=== PATIENT | female | born 2000 | race Hispanic/Latino ===

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

== ENCOUNTER 2019-06-24 11:02 | Emergency (ER) | payer SELFPAY ==
--- OUTSIDE RECORDS SUMMARY | 2019-06-24 11:04 | XMS REPORT ---
:2000 [facility] [address] [place] [address] Care Team Providers Name Role Phone Unavailable Unavailable Unavailable Problems This patient has no known problems. Allergies, Adverse Reactions, Alerts This patient has no known allergies or adverse reactions. Medications This patient has no known medications.
[2019-06-24] MEDS ORDERED: AMOX/K CLAV 875 MG TAB ONE (12:16)
--- NOTE | 2019-06-24 12:16 | EDPHYS ---
Physician Documentation [facility] Name: Tory Espinoza Age: 19 yrs Sex: Female : 2000 Arrival Date: 06/24/2019 Time: 11:05 Bed 16 Private MD: ED Physician Amilcar Martinez HPI: 06/24 12:11 This 19 yrs old Female presents to ER via Ambulatory with complaints of karley Congestion. 12:11 The patient or guardian reports cough, that is constant. Onset: The symptoms/episode karley began/occurred 2 day(s) ago. Modifying factors: The symptoms are alleviated by nothing. the symptoms are aggravated by nothing. Associated signs and symptoms: Pertinent positives: rhinorrhea, sore throat. Severity of symptoms: At their worst the symptoms were mild in the emergency department the symptoms are unchanged. The patient has not experienced similar symptoms in the past. 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 - Social history:: Smoking status: Patient/guardian denies using tobacco. - Ebola Screening: : No symptoms or risks identified at this time. - Family history:: not pertinent. ROS: 12:11 Constitutional: Negative for fever, chills, and weight loss, Eyes: Negative for injury, karley pain, redness, and discharge, Neck: Negative for injury, pain, and swelling, Cardiovascular: Negative for chest pain, palpitations, and edema, Respiratory: Negative for shortness of breath, cough, wheezing, and pleuritic chest pain, Abdomen/GI: Negative for abdominal pain, nausea, vomiting, diarrhea, and constipation, Back: Negative for injury and pain, : Negative for injury, bleeding, discharge, and swelling, MS/Extremity: Negative for injury and deformity, Skin: Negative for injury, rash, and discoloration, Neuro: Negative for headache, weakness, numbness, tingling, and seizure. 12:11 ENT: Positive for rhinorrhea, sinus congestion, sore throat. Exam: 12:11 Constitutional: This is a well developed, well nourished patient who is awake, alert, karley and in no acute distress. Head/Face: Normocephalic, atraumatic. Eyes: Pupils equal round and reactive to light, extra-ocular motions intact. Lids and lashes normal. Conjunctiva and sclera are non-icteric and not injected. Cornea within normal limits. Periorbital areas with no swelling, redness, or edema. Neck: Trachea midline, no thyromegaly or masses palpated, and no cervical lymphadenopathy. Supple, full range of motion without nuchal rigidity, or vertebral point tenderness. No Meningismus. Chest/axilla: Normal chest wall appearance and motion. Nontender with no deformity. No lesions are appreciated. Cardiovascular: Regular rate and rhythm with a normal S1 and S2. No gallops, murmurs, or rubs. Normal PMI, no JVD. No pulse deficits. Respiratory: Lungs have equal breath sounds bilaterally, clear to auscultation and percussion. No rales, rhonchi or wheezes noted. No increased work of breathing, no retractions or nasal flaring. Abdomen/GI: Soft, non-tender, with normal bowel sounds. No distension or tympany. No guarding or rebound. No evidence of tenderness throughout. Back: No spinal tenderness. No costovertebral tenderness. Full range of motion. Skin: Warm, dry with normal turgor. Normal color with no rashes, no lesions, and no evidence of cellulitis. MS/ Extremity: Pulses equal, no cyanosis. Neurovascular intact. Full, normal range of motion. Neuro: Awake and alert, GCS 15, oriented to person, place, time, and situation. Cranial nerves II-XII grossly intact. Motor strength 5/5 in all extremities. Sensory grossly intact. Cerebellar exam normal. Normal gait. Psych: Awake, alert, with orientation to person, place and time. Behavior, mood, and affect are within normal limits. 12:11 ENT: Posterior pharynx: Airway: normal, no evidence of obstruction, Tonsils: are normal in appearance, Uvula: normal, swelling, is not appreciated, erythema, that is mild, exudate, is not appreciated. Vital Signs: 11:13 BP 132 / 88; Pulse 78; Resp 16; Temp 97.8; Pulse Ox 100% on R/A; Weight 95.25 kg; hb Height 5 ft. 5 in. (165.10 cm); Pain 8/10; 12:10 BP 110 / 65; Pulse 71; Resp 15; Temp 97.8(O); Pulse Ox 100% on R/A; Pain 8/10; rb1 11:13 Body Mass Index 34.95 (95.25 kg, 165.10 cm) hb MDM: 11:32 Patient medically screened. [facility] 12:14 Data reviewed: vital signs, nurses notes. [facility] Administered Medications: 12:16 Drug: Augmentin 875 mg Route: PO; rb1 Disposition: 06/24/19 12:15 Discharged to Home. Impression: Acute upper respiratory infection, unspecified, Acute pharyngitis. - Condition is Stable. - Discharge Instructions: Pharyngitis, Upper Respiratory Infection, Adult, Cool Mist Vaporizer, Pharyngitis, [id number], Cough, Adult, Sore Throat, [id number]. - Prescriptions for Augmentin 875- 125 mg Oral Tablet - take 1 tablet by ORAL route every 12 hours for 7 days; 14 tablet. Yasmin- D 12 Hour 60-120 mg Oral Tablet Sustained Release 12 hr - take 1 tablet by ORAL route every 12 hours As needed; 20 tablet. - Medication Reconciliation Form, Thank You Letter, Antibiotic Education, Prescription Opioid Use, Work release form form. - Follow up: Private Physician; When: 2 - 3 days; Reason: Recheck today's complaints, Continuance of care, Re-evaluation by your physician. - Problem is new. - Symptoms have improved. Signatures: Amilcar Martinez MD MD [facility] Kalpana Márquez, RN RN [facility] Casi Hardin RN RN Corrections: (The following items were deleted from the chart) 12:36 12:15 06/24/2019 12:15 Discharged to Home. Impression: Acute upper respiratory rb1 infection, unspecified; Acute pharyngitis. Condition is Stable. Forms are Medication Reconciliation Form, Thank You Letter, Antibiotic Education, Prescription Opioid Use. Follow up: Private Physician; When: 2 - 3 days; Reason: Recheck today's complaints, Continuance of care, Re-evaluation by your physician. Problem is new. Symptoms have improved. [facility]
--- NOTE | 2019-06-24 12:16 | ER ---
Nurse's Notes [facility] Name: Tory Espinoza Age: 19 yrs Sex: Female : 2000 Arrival Date: 06/24/2019 Time: 11:05 Bed 16 Private MD: Diagnosis: Acute upper respiratory infection, unspecified;Acute pharyngitis Presentation: 06/24 11:12 Presenting complaint: Nonproductive cough, sore throat, headache, nausea, fever, and hb body aches x 5 days. TMAX 100.3. Transition of care: patient was not received from another setting of care. Resp Distress? No respiratory distress is noted at this time. Onset of symptoms was June 20, 2019. Risk Assessment: Do you want to hurt yourself or someone else? Patient reports no desire to harm self or others. Initial Sepsis Screen: Does the patient meet any 2 criteria? No. Patient's initial sepsis screen is negative. Does the patient have a suspected source of infection? No. Patient's initial sepsis screen is negative. Care prior to arrival: None. 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 - Social history:: Smoking status: Patient/guardian denies using tobacco. - Ebola Screening: : No symptoms or risks identified at this time. - Family history:: not pertinent. Screenin:16 Abuse screen: Denies threats or abuse. Nutritional screening: No deficits noted. rb1 Tuberculosis screening: No symptoms or risk factors identified. Fall Risk None identified. Assessment: 11:16 General: Appears in no apparent distress. comfortable, Behavior is calm, cooperative. rb1 Pain: Complains of pain in sore throat and body aches Pain currently is 8 out of 10 on a pain scale. Neuro: Level of Consciousness is awake, alert, obeys commands, Oriented to person, place, time, situation. Cardiovascular: Capillary refill < 3 seconds is brisk in bilateral fingers. Respiratory: Airway is patent Respiratory effort is even, unlabored, Respiratory pattern is regular, symmetrical, Breath sounds are clear bilaterally. GI: Reports nausea. : No signs and/or symptoms were reported regarding the genitourinary system. EENT: Reports pain when swallowing. Derm: Skin is pink, warm \T\ dry. Musculoskeletal: Range of motion: intact in all extremities. 12:10 Reassessment: Patient appears in no apparent distress at this time. No changes from rb1 previously documented assessment. Family at bedside. Vital Signs: 11:13 BP 132 / 88; Pulse 78; Resp 16; Temp 97.8; Pulse Ox 100% on R/A; Weight 95.25 kg; hb Height 5 ft. 5 in. (165.10 cm); Pain 8/10; 12:10 BP 110 / 65; Pulse 71; Resp 15; Temp 97.8(O); Pulse Ox 100% on R/A; Pain 8/10; rb1 11:13 Body Mass Index 34.95 (95.25 kg, 165.10 cm) hb ED Course: 11:05 Patient arrived in ED. as 11:13 Triage completed. hb 11:13 Arm band placed on. hb 11:14 Casi Hardin, RN is Primary Nurse. hb 11:16 Patient has correct armband on for positive identification. Bed in low position. Call rb1 light in reach. Side rails up X 1. Pulse ox on. NIBP on. 11:32 Amilcar Martinez MD is Attending Physician. karley 12:36 No provider procedures requiring assistance completed. Patient did not have IV access rb1 during this emergency room visit. Administered Medications: 12:16 Drug: Augmentin 875 mg Route: PO; rb1 Outcome: 12:15 Discharge ordered by . karley 12:36 Patient left the ED. rb1 12:36 Discharged to home ambulatory, with family. rb1 12:36 Condition: stable 12:36 Discharge instructions given to patient, Instructed on discharge instructions, follow up and referral plans. medication usage, Demonstrated understanding of instructions, follow-up care, medications, Prescriptions given X 2. Signatures: Amilcar Martinez MD MD cha Martinez, Amelia as Barber, Rebecca RN RN rb1 Casi Hardin, RN RN Corrections: (The following items were deleted from the chart) 11:14 11:12 Acuity: DEBBIE 3 hb hb 13:06 11:16 Respiratory: Airway is patent Respiratory effort is even, unlabored, Respiratory rb1 pattern is regular, symmetrical, rb1
[2019-06-24 12:46] VITALS: BP 132/88; TEMP 97.8; O2SAT 100
== END 2019-06-24 12:36 | disposition home or self-care (01) ==
LOC: ER 11:02
DX: J06.9 Acute upper respiratory infection, unspecified (principal); J02.9 Acute pharyngitis, unspecified
CPT/HCPCS: 99283

== ENCOUNTER 2020-05-03 23:11 | Emergency (ER) | payer SELFPAY ==
--- OUTSIDE RECORDS SUMMARY | 2020-05-03 23:13 | XMS REPORT | Continuity of Care Document ---
:2000 Author Organization [facility] t Address [address] [place] [address] [address] [place] [address] Care Team Providers Name Role Phone Unavailable Unavailable Unavailable Problems This patient has no known problems. Allergies, Adverse Reactions, Alerts This patient has no known allergies or adverse reactions. Medications This patient has no known medications. Procedures This patient has no known procedures. Results This patient has no known results.
[2020-05-04 00:06] LABS: Urine Blood 2+ (NEG); Urine Glucose NEGATIVE (NEG); Urine Protein 2+ (NEG); Urine pH 6.5 (5.0-7.0)
[2020-05-04 00:11] LABS: Urine Culture Reflex Order NOT NEEDED
[2020-05-04 00:12] LABS: Urine Bacteria 20-50 /HPF (<20); Urine RBC 20-50 /HPF (NONE SEEN)
[2020-05-04] MEDS ORDERED: WATER FOR INJ,STERILE 10 ML ONE (00:21)
[2020-05-04] MEDS ORDERED: CEFTRIAXONE 1000 MG/VIAL ONE (00:21)
--- NOTE | 2020-05-04 00:21 | ER ---
Nurse's Notes [facility] Name: Tory Espinoza Age: 20 yrs Sex: Female : 2000 Arrival Date: 05/03/2020 Time: 23:14 Bed 20 Private MD: Diagnosis: Low back pain;Urinary tract infection, site not specified Presentation: 05/03 23:17 Chief complaint: Patient states: Low back pain for 1 day getting progressively worse. ll1 Noticed urinary frequency with the feeling of not emptying her bladder fully for about 3 days. No fever. Coronavirus screen: Patient denies a cough. Patient denies shortness of breath or difficulty breathing. Patient denies measured and/or subjective temperature greater than 100.4F prior to today's visit. Patient denies travel on a cruise ship or to a country the [facility] currently lists as an affected area. Patient denies contact with known and/or suspected case of COVID-19. Patient instructed to continue to wear a mask when interacting with others. Patient moved to private room, placed in contact and droplet isolation with eye protection until further assessment. Ebola Screen: Patient denies travel to an Ebola-affected area in the 21 days before illness onset. Initial Sepsis Screen: Does the patient meet any 2 criteria? HR > 90 bpm. No. Patient's initial sepsis screen is negative. Risk Assessment: Do you want to hurt yourself or someone else? Patient reports no desire to harm self or others. Onset of symptoms was May 03, 2020. 23:17 Method Of Arrival: Ambulatory ll1 23:17 Acuity: DEBBIE 3 ll1 23:30 Initial Sepsis Screen: Does the patient have a suspected source of infection? Yes: Dysuria/Frequency/Urgency/UTI. 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 - Social history:: Smoking status: Patient denies any tobacco usage or history of. Patient/guardian denies using alcohol, street drugs, tobacco products. Screenin/28 00:00 Abuse screen: Denies threats or abuse. Denies injuries from another. Nutritional screening: No deficits noted. Tuberculosis screening: No symptoms or risk factors identified. Fall Risk None identified. Assessment: 05/03 23:25 General: Appears in no apparent distress. Behavior is calm, cooperative, appropriate for age. Pain: Complains of pain in mid lower back Pain does not radiate. Pain currently is 8 out of 10 on a pain scale. Neuro: Level of Consciousness is awake, alert, obeys commands, Oriented to person, place, time, situation, Appropriate for age. Cardiovascular: Capillary refill < 3 seconds. Respiratory: Airway is patent Respiratory effort is even, unlabored, Respiratory pattern is regular, symmetrical. GI: Abdomen is flat, non-distended, Abd is soft and non tender X 4 quads. : Reports urinary frequency. EENT: No signs and/or symptoms were reported regarding the EENT system. Derm: Skin is intact, is healthy with good turgor, Skin is pink, warm \T\ dry. normal. Musculoskeletal: Circulation, motion, and sensation intact. 05/04 00:34 Reassessment: Patient appears in no apparent distress at this time. No changes from previously documented assessment. Patient and/or family updated on plan of care and expected duration. Pain level reassessed. Patient is alert, oriented x 3, equal unlabored respirations, skin warm/dry/pink. Vital Signs: 05/03 23:17 BP 118 / 81; Pulse 100; Resp 17; Temp 99.0; Pulse Ox 100% ; Pain 10/10; ll1 05/04 00:30 BP 116 / 79; Pulse 94; Resp 18; Pulse Ox 100% ; ED Course: 05/03 23:14 Patient arrived in ED. cl3 23:19 Triage completed. ll1 23:19 Arm band placed on Patient placed in an exam room, on a stretcher. 1 23:26 Orlando Kolb PA is PHCP. [facility] 23:26 Melchor Reza MD is Attending Physician. mohsen 23:26 Bud Baeza is Primary Nurse. 23:30 Patient has correct armband on for positive identification. Bed in low position. Call light in reach. Side rails up X 1. Pulse ox on. NIBP on. 05/04 00:36 No provider procedures requiring assistance completed. Patient did not have IV access during this emergency room visit. Administered Medications: 00:16 Drug: Rocephin (cefTRIAXone) 1 grams Route: IM; Site: right gluteus; 00:37 Follow up: Response: No adverse reaction Outcome: 00:21 Discharge ordered by MD. jones 00:37 Discharged to home ambulatory. 00:37 Condition: stable 00:37 Discharge instructions given to patient, Instructed on discharge instructions, follow up and referral plans. medication usage, POC Demonstrated understanding of instructions, follow-up care, medications, POC Prescriptions given X 1. 00:37 Patient left the ED. Signatures: Orlando Kolb PA PA jmm Habalo, Winsy Perry Robertson cl3 Ac Robertson, RN RN ll1
--- NOTE | 2020-05-04 00:21 | EDPHYS ---
Physician Documentation [facility] Name: Tory Espinoza Age: 20 yrs Sex: Female : 2000 Arrival Date: 05/03/2020 Time: 23:14 Bed 20 Private MD: ED Physician Melchor Reza HPI: 05/03 23:32 This 20 yrs old Female presents to ER via Ambulatory with complaints of Low jmm Back Pain. 23:32 The patient presents with pain that is acute. Onset: The symptoms/episode jmm began/occurred gradually, today. Modifying factors: The patient symptoms are alleviated by nothing, the patient symptoms are aggravated by movement. Associated signs and symptoms: Pertinent negatives: abdominal pain, fever, vomiting. This is a 20 year old female with no chronic medical conditions that presents to the ED with complaints of low back pain along with dysuria. Patient denies abdominal pain, fever, vomiting. . 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 - Social history:: Smoking status: Patient denies any tobacco usage or history of. Patient/guardian denies using alcohol, street drugs, tobacco products. ROS: 23:32 Constitutional: Negative for fever, chills, and weight loss, Cardiovascular: Negative jmm for chest pain, palpitations, and edema, Respiratory: Negative for shortness of breath, cough, wheezing, and pleuritic chest pain. 23:32 Back: Positive for pain with movement. 23:32 : Positive for urinary symptoms. 23:32 All other systems are negative. Exam: 23:32 Constitutional: This is a well developed, well nourished patient who is awake, alert, jmm and in no acute distress. Head/Face: atraumatic. Eyes: EOMI, no conjunctival erythema appreciated ENT: Moist Mucus Membranes Neck: Trachea midline, Supple Chest/axilla: Normal chest wall appearance and motion. Cardiovascular: Regular rate and rhythm. No edema appreciated Respiratory: Normal respirations, no respiratory distress appreciated 23:32 Abdomen/GI: Inspection: abdomen appears normal, Bowel sounds: normal, Palpation: abdomen is soft and non-tender, in all quadrants. 23:32 Back: mild lower lumbar tenderness on palpation, mild cva tenderness bilaterally. . 23:32 Musculoskeletal/extremity: ROM: intact in all extremities. 23:32 Skin: Appearance: Color: normal in color. 23:32 Neuro: Orientation: is normal, Mentation: is normal, Memory: is normal. 23:32 Psych: Behavior/mood is pleasant, cooperative. Vital Signs: 23:17 BP 118 / 81; Pulse 100; Resp 17; Temp 99.0; Pulse Ox 100% ; Pain 10/10; ll1 05/04 00:30 BP 116 / 79; Pulse 94; Resp 18; Pulse Ox 100% ; wh MDM: 05/03 23:32 Patient medically screened. [facility] 05/04 00:19 Data reviewed: vital signs, nurses notes. Counseling: I had a detailed discussion with mohsen the patient and/or guardian regarding: the historical points, exam findings, and any diagnostic results supporting the discharge/admit diagnosis, lab results, the need for outpatient follow up, to return to the emergency department if symptoms worsen or persist or if there are any questions or concerns that arise at home. ED course: Patient is alert and non toxic in appearance in the ED. Patient is able to tolerate PO. Patient most likely has UTI with possible pyelonephritis. patient given im abx in the ED and discharged with oral abx. Patient is given strict return precautions. Patient understood and agrees with the plan of care. . 05/03 23:47 Order name: Urine Culture 05/03 23:47 Order name: Urine Microscopic Only; Complete Time: 00:16 05/03 23:39 Order name: Urine Dipstick-Ancillary (obtain specimen); Complete Time: 23:47 [facility] 05/03 23:51 Order name: Urine Dipstick--Ancillary (enter results); Complete Time: 00:09 [facility] 05/03 23:51 Order name: Urine --Ancillary (enter results); Complete Time: 00:09 [facility] 05/03 23:39 Order name: Urine Test (obtain specimen); Complete Time: 23:47 [facility] Administered Medications: 00:16 Drug: Rocephin (cefTRIAXone) 1 grams Route: IM; Site: right gluteus; 00:37 Follow up: Response: No adverse reaction Disposition: 03:52 Co-signature as Attending Physician, Melchor Reza MD. ma2 Disposition: 05/04/20 00:21 Discharged to Home. Impression: Low back pain, Urinary tract infection, site not specified. - Condition is Stable. - Discharge Instructions: Urinary Tract Infection, Adult. - Prescriptions for Cipro 500 mg Oral Tablet - take 1 tablet by ORAL route every 12 hours for 7 days; 14 tablet. - Medication Reconciliation Form, Thank You Letter, Antibiotic Education, Prescription Opioid Use form. - Follow up: Private Physician; When: 2 - 3 days; Reason: Recheck today's complaints, Continuance of care, Re-evaluation by your physician. Signatures: Dispatcher [employer] EDMS Orlando Kolb PA PA jmm Habalo, Winsy wh Alzahri, Mohammad, MD MD ma2 Ac Robertson RN RN ll1 Corrections: (The following items were deleted from the chart) 00:37 00:21 05/04/2020 00:21 Discharged to Home. Impression: Low back pain; Urinary tract wh infection, site not specified. Condition is Stable. Forms are Medication Reconciliation Form, Thank You Letter, Antibiotic Education, Prescription Opioid Use. Follow up: Private Physician; When: 2 - 3 days; Reason: Recheck today's complaints, Continuance of care, Re-evaluation by your physician. robert
[2020-05-04 00:42] VITALS: TEMP 99; O2SAT 100
[2020-05-04 00:47] VITALS: BP 116/79
== END 2020-05-04 00:37 | disposition home or self-care (01) ==
LOC: ER 23:11
DX: N39.0 Urinary tract infection, site not specified (principal)
CPT/HCPCS: 81003; 81015; 81025; 87077; 87086; 87088; 87186; 96372; 99283

== ENCOUNTER 2020-11-02 21:14 | Emergency (ER) | payer SELFPAY ==
--- OUTSIDE RECORDS SUMMARY | 2020-11-02 21:16 | XMS REPORT | Continuity of Care Document ---
:2000 Author Organization [facility] t Address [address] [place] [address] [address] [place] [address] Care Team Providers Name Role Phone Unavailable Unavailable Unavailable Problems This patient has no known problems. Allergies, Adverse Reactions, Alerts This patient has no known allergies or adverse reactions. Medications This patient has no known medications. Procedures This patient has no known procedures. Results This patient has no known results.
--- NOTE | 2020-11-02 23:33 | ER ---
Nurse's Notes [facility] Name: Tory Espinoza Age: 20 yrs Sex: Female : 2000 Arrival Date: 11/02/2020 Time: 21:15 Bed 23 Private MD: Diagnosis: Acute pharyngitis Presentation: 11/02 22:34 Chief complaint: Patient states: sore throat since Sunday, also reports chest em tightness, denies fever. Coronavirus screen: Client denies travel out of the [place] in the last 14 days. sore throat. Ebola Screen: Patient negative for fever greater than or equal to 101.5 degrees Fahrenheit, and additional compatible Ebola Virus Disease symptoms Patient denies exposure to infectious person. Patient denies travel to an Ebola-affected area in the 21 days before illness onset. No symptoms or risks identified at this time. Initial Sepsis Screen: Does the patient meet any 2 criteria? HR > 90 bpm. Does the patient have a suspected source of infection? No. Patient's initial sepsis screen is negative. Risk Assessment: Do you want to hurt yourself or someone else? Patient reports no desire to harm self or others. Onset of symptoms was October 31, 2020. 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 - Social history:: Smoking status: Patient denies any tobacco usage or history of. Screenin:33 Abuse screen: Denies threats or abuse. Nutritional screening: No deficits noted. vg1 Tuberculosis screening: No symptoms or risk factors identified. Fall Risk None identified. Assessment: 23:31 General: Appears in no apparent distress. comfortable, Behavior is calm, cooperative. vg1 Pain: Complains of pain in throat Pain currently is 8 out of 10 on a pain scale. Aggravated by eating, drinking. Neuro: Level of Consciousness is awake, alert, obeys commands, Oriented to person, place, time, situation. Cardiovascular: Patient's skin is warm and dry. Respiratory: Airway is patent Respiratory effort is even, unlabored, Breath sounds are clear bilaterally. GI: No signs and/or symptoms were reported involving the gastrointestinal system. : No signs and/or symptoms were reported regarding the genitourinary system. EENT: Throat is reddened has enlarged tonsils. Derm: Skin is intact, is healthy with good turgor. Musculoskeletal: Circulation, motion, and sensation intact. Vital Signs: 22:34 BP 124 / 76; Pulse 94; Resp 18; Temp 98.9; Pulse Ox 99% on R/A; Weight 99.79 kg; Height em 5 ft. 5 in. (165.10 cm); Pain 8/10; 23:32 BP 118 / 79; Pulse 90; Resp 14; Pulse Ox 100% on R/A; vg1 22:34 Body Mass Index 36.61 (99.79 kg, 165.10 cm) em ED Course: 21:15 Patient arrived in ED. cl3 22:36 Triage completed. em 22:36 Arm band placed on. em 23:07 Orlando Kolb PA is PHCP. [facility] 23:07 Chester Mccarthy MD is Attending Physician. [facility] 23:31 Paty Amaro, FAHEEM is Primary Nurse. vg1 23:33 Patient has correct armband on for positive identification. Bed in low position. Call vg1 light in reach. 23:38 No provider procedures requiring assistance completed. Patient did not have IV access vg1 during this emergency room visit. Administered Medications: No medications were administered Outcome: 23:32 Discharge ordered by . [facility] 23:38 Discharged to home ambulatory. vg1 23:38 Condition: stable 23:38 Discharge instructions given to patient, Instructed on discharge instructions, the need for admit, medication usage, Demonstrated understanding of instructions, follow-up care, medications, Prescriptions given X 1. 23:38 Patient left the ED. vg1 Signatures: Orlando Kolb PA PA jmm Munoz, Edgar, RN FAHEEM Perry Robertson [place] Paty Amaro RN RN vg1
--- NOTE | 2020-11-02 23:33 | EDPHYS ---
Physician Documentation [facility] Name: Tory Espinoza Age: 20 yrs Sex: Female : 2000 Arrival Date: 11/02/2020 Time: 21:15 Bed 23 Private MD: ED Physician Chester Mccarthy HPI: 11/02 23:29 This 20 yrs old Female presents to ER via Ambulatory with complaints of Sore jmm Throat, Difficulty Swallowing. 23:29 The patient presents with sore throat. Onset: The symptoms/episode began/occurred jmm gradually, 2 day(s) ago. Modifying factors: The symptoms are alleviated by nothing, the symptoms are aggravated by nothing. This is a 20 year old female with no chronic medical conditions that presents to the ED with complaints of sore throat beginning this past Sunday worsening today. Pain radiates to her left ear. Denies SOB. 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 - Social history:: Smoking status: Patient denies any tobacco usage or history of. ROS: 23:29 Constitutional: Negative for fever, chills, and weight loss, Cardiovascular: Negative jmm for chest pain, palpitations, and edema, Respiratory: Negative for shortness of breath, cough, wheezing, and pleuritic chest pain. 23:29 ENT: Positive for sore throat. 23:29 All other systems are negative. Exam: 23:29 Constitutional: This is a well developed, well nourished patient who is awake, alert, jmm and in no acute distress. Head/Face: atraumatic. Eyes: EOMI, no conjunctival erythema appreciated 23:29 Neck: Trachea midline, Supple Chest/axilla: Normal chest wall appearance and motion. Cardiovascular: Regular rate and rhythm. No edema appreciated Respiratory: Normal respirations, no respiratory distress appreciated Abdomen/GI: Non distended, soft Back: Normal ROM Skin: General appearance color normal MS/ Extremity: Moves all extremities, no obvious deformities appreciated, no edema noted to the lower extremities Neuro: Awake and alert, normal gait Psych: Behavior is normal, Mood is normal, Patient is cooperative and pleasant 23:29 ENT: Posterior pharynx: Tonsils: bilaterally enlarged, erythema, that is moderate, peritonsillar mass, is not appreciated. Vital Signs: 22:34 BP 124 / 76; Pulse 94; Resp 18; Temp 98.9; Pulse Ox 99% on R/A; Weight 99.79 kg; Height em 5 ft. 5 in. (165.10 cm); Pain 8/10; 23:32 BP 118 / 79; Pulse 90; Resp 14; Pulse Ox 100% on R/A; vg1 22:34 Body Mass Index 36.61 (99.79 kg, 165.10 cm) em MDM: 23:29 Patient medically screened. [facility] 23:31 Data reviewed: vital signs, nurses notes. Counseling: I had a detailed discussion with robert the patient and/or guardian regarding: the historical points, exam findings, and any diagnostic results supporting the discharge/admit diagnosis, the need for outpatient follow up, to return to the emergency department if symptoms worsen or persist or if there are any questions or concerns that arise at home. ED course: Patient is alert and non toxic in appearance. 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 Patient is advised to return to the ED if symptoms worsen. . 11/02 23:02 Order name: Strep tw4 Administered Medications: No medications were administered Disposition: 11/03 06:24 Co-signature as Attending Physician, Chester Mccarthy MD I agree with the assessment and 4 plan of care. Disposition: 11/02/20 23:32 Discharged to Home. Impression: Acute pharyngitis. - Condition is Stable. - Discharge Instructions: Pharyngitis. - Prescriptions for Amoxicillin 875 mg Oral Tablet - take 1 tablet by ORAL route every 12 hours for 10 days; 20 tablet. - Medication Reconciliation Form, Thank You Letter, Antibiotic Education, Prescription Opioid Use form. - Follow up: Private Physician; When: 2 - 3 days; Reason: Recheck today's complaints, Continuance of care, Re-evaluation by your physician. Signatures: Dispatcher [employer] EDMS Orlando Kolb PA PA jmm Munoz, Edgar, RN Chester Rios MD MD tw4 Paty Amaro RN RN vg1 Corrections: (The following items were deleted from the chart) 11/02 23:38 23:32 11/02/2020 23:32 Discharged to Home. Impression: Acute pharyngitis. Condition is vg1 Stable. Forms are Medication Reconciliation Form, Thank You Letter, Antibiotic Education, Prescription Opioid Use. Follow up: Private Physician; When: 2 - 3 days; Reason: Recheck today's complaints, Continuance of care, Re-evaluation by your physician. robert
[2020-11-02 23:44] VITALS: TEMP 98.9
[2020-11-02 23:45] VITALS: BP 118/79; O2SAT 100
== END 2020-11-02 23:38 | disposition home or self-care (01) ==
LOC: ER 21:14
DX: J02.9 Acute pharyngitis, unspecified (principal)
CPT/HCPCS: 87081; 99282

== ENCOUNTER 2021-05-14 16:13 | Emergency (ER) | payer SELFPAY ==
--- OUTSIDE RECORDS SUMMARY | 2021-05-14 16:16 | XMS REPORT | Continuity of Care Document ---
:2000 Author Organization [facility] t Address [address] [place] [address] Care Team Providers Name Role Phone 2, Lab Attending Clinician Unavailable Lázaro AGUILAR, Tristna Attending Clinician Linus CAMPBELL Attending Clinician Problems This patient has no known problems. Allergies, Adverse Reactions, Alerts This patient has no known allergies or adverse reactions. Medications This patient has no known medications. Procedures This patient has no known procedures. 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 2, [facility] [id number] 08:35:16 08:50:16 Visit [place] [id number] Dairy [id number] Professio [id number] [address] 2021-05-11 2021-05-11 Emergency [facility] [id number] 02:43:00 02:59:00 [place] [id number] Dairy [id number] Wise [id number] 2021-05-11 2021-05-11 Telephone Ivis Sesay [facility] [[email or web address]] [id number] 00:00:00 00:00:00 Cam [place] [id number] [place]airy [id number] Professio [phone] [address] 2021-05-11 2021-05-11 Case Ivis Sesay [facility] [[email or web address]] [id number] 00:00:00 00:00:00 Management Cam [place] [id number] [place] [id number] Professio [id number] [address] 2021-05-10 2021-05-10 Case Linus [facility] [[email or web address]] [id number] 00:00:00 00:00:00 Management Tati [place] [id number] Dairy [id number] Professio [phone] [address] 2021-05-09 2021-05-09 Initial Ivis Sesay [facility] [[email or web address]] [id number] 09:59:36 11:10:34 Cam [place] [id number] Visit [place] [id number] Professio [phone] [address] Results This patient has no known results.
[2021-05-14 17:23] LABS: Urine Blood 3+ (Negative); Urine Glucose Negative (Negative); Urine Protein Trace (Negative); Urine Specific Gravity 1.025 (1.005-1.030); Urine pH 6.5 (5.0-7.0)
--- NOTE | 2021-05-14 18:14 | RAD REPORT ---
EXAM DESCRIPTION: US - Transvaginal OB - 05/14/2021 5:35 pm CLINICAL HISTORY: VAGINAL BLEEDING COMPARISON: No comparisons FINDINGS: 4 millimeters cystic structure in the endometrial canal is noted. There is a decidual reac tion but no pole. Vascular flow is present within the left ovary. It measures 2.2 x 1 x 1.3 jabari timeters with volume of 1.6 cc. The right ovary was not visualized. IMPRESSION: Cystic structure in the endometrial canal probably an early IUP. Suggest short-term foll ow-up ultrasound and/or correlation with serial HCG. The left ovary has vascular flow. The right ovar y was not visualized
[2021-05-14 19:54] LABS: Absolute Lymphocytes (CBC) 1.5 K/uL (0.7-4.9); Basophils % 0.4 % (0-1.3); Hematocrit 35.6 % (36.0-45.0); Lymphocytes % 18.6 % (15.3-44.8); MPV 7.4 fL (7.6-11.3); RBC Red Blood Cell Count 4.38 M/uL (3.86-4.86)
[2021-05-14 20:09] LABS: BUN Blood Urea Nitrogen 4 mg/dL (7-18); Bicarbonate 27 mmol/L (21-32); Glucose Level 109 mg/dL (74-106); HCG, Quantitative 746 mIU/mL (1-3); Potassium 3.5 mmol/L (3.5-5.1); Sodium Level 139 mmol/L (136-145)
--- NOTE | 2021-05-14 22:21 | EDPHYS ---
Physician Documentation [facility] Name: Tory Espinoza Age: 21 yrs Sex: Female : 2000 Arrival Date: 05/14/2021 Time: 16:16 Bed 11 Private MD: ED Physician Stanley Sesay HPI: 05/14 22:12 This 21 yrs old Female presents to ER via Ambulatory with complaints of pkl Vaginal Bleeding - Pain. 22:12 The patient presents with pelvic pain, vaginal bleeding that is. Onset: The pkl symptoms/episode began/occurred this morning. Patient seen by her Rod Bending Machine Operator ( Dr. Sesay ) earlier this weel. 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 - Social history:: Smoking status: Patient denies any tobacco usage or history of. ROS: 22:12 Positive for pelvic pain, vaginal bleeding, of the suprapubic area. pkl 22:12 Eyes: Negative for injury, pain, redness, and discharge, ENT: Negative for injury, pain, and discharge, Neck: Negative for injury, pain, and swelling, Cardiovascular: Negative for chest pain, palpitations, and edema, Respiratory: Negative for shortness of breath, cough, wheezing, and pleuritic chest pain, Abdomen/GI: Negative for abdominal pain, nausea, vomiting, diarrhea, and constipation, Back: Negative for injury and pain, MS/Extremity: Negative for injury and deformity, Skin: Negative for injury, rash, and discoloration, Neuro: Negative for headache, weakness, numbness, tingling, and seizure. Exam: 22:12 Head/Face: Normocephalic, atraumatic. Eyes: Pupils equal round and reactive to light, pkl extra-ocular motions intact. Lids and lashes normal. Conjunctiva and sclera are non-icteric and not injected. Cornea within normal limits. Periorbital areas with no swelling, redness, or edema. ENT: Nares patent. No nasal discharge, no septal abnormalities noted. Tympanic membranes are normal and external auditory canals are clear. Oropharynx with no redness, swelling, or masses, exudates, or evidence of obstruction, uvula midline. Mucous membranes moist. Neck: Trachea midline, no thyromegaly or masses palpated, and no cervical lymphadenopathy. Supple, full range of motion without nuchal rigidity, or vertebral point tenderness. No Meningismus. Chest/axilla: Normal chest wall appearance and motion. Nontender with no deformity. No lesions are appreciated. Cardiovascular: Regular rate and rhythm with a normal S1 and S2. No gallops, murmurs, or rubs. Normal PMI, no JVD. No pulse deficits. Respiratory: Lungs have equal breath sounds bilaterally, clear to auscultation and percussion. No rales, rhonchi or wheezes noted. No increased work of breathing, no retractions or nasal flaring. Abdomen/GI: Soft, non-tender, with normal bowel sounds. No distension or tympany. No guarding or rebound. No evidence of tenderness throughout. Back: No spinal tenderness. No costovertebral tenderness. Full range of motion. 22:12 : Pelvic Exam: Speculum exam: mild bleeding, os that is closed, a female innersole fitter was present for the exam. 22:12 Musculoskeletal/extremity: Exam is negative for acute changes. 22:12 Skin: Exam negative for rash. 22:12 Neuro: Orientation: is normal, Mentation: is normal, Cranial nerves: grossly normal, Motor: is normal. Vital Signs: 16:35 BP 116 / 70; Pulse 80; Resp 20; Temp 99.4; Pulse Ox 98% on R/A; Weight 109.32 kg (M); kg Height 5 ft. 5 in. (165.10 cm); Pain 9/10; 22:29 BP 112 / 76; Pulse 80; Resp 18; Temp 98.2; Pulse Ox 98% ; Pain 2/10; ms4 16:35 Body Mass Index 40.10 (109.32 kg, 165.10 cm) kg MDM: 21:48 Patient medically screened. pkl 22:12 Data reviewed: vital signs, nurses notes, lab test result(s), radiologic studies, pkl ultrasound. ED course: Discussed lab and US results with patient. Advised bed rest and no sexual intercourse. To follow up with her Ob-Social Services Specialist on Sunday ( 05/16/21 ) To return if pelvic pain and vaginal bleeding. Patient understood instruction. 05/14 16:51 Order name: Abo/rh Typing; Complete Time: 21:42 kb 05/14 16:51 Order name: Basic Metabolic Panel; Complete Time: 21:42 kb 05/14 16:51 Order name: CBC with Diff; Complete Time: 21:42 kb 05/14 16:51 Order name: Quantitative Hcg; Complete Time: 21:42 kb 05/14 16:51 Order name: US Transvaginal Ob; Complete Time: 21:42 kb 05/14 17:23 Order name: Urine Dipstick-Ancillary; Complete Time: 21:42 EDMS 05/14 16:20 Order name: Urine Dipstick-Ancillary (obtain specimen); Complete Time: 22:30 kb 05/14 16:20 Order name: Urine Test (obtain specimen); Complete Time: 22:30 kb 05/14 16:51 Order name: IV Saline Lock; Complete Time: 22:11 kb 05/14 16:51 Order name: Labs collected and sent; Complete Time: 22:11 kb 05/14 16:51 Order name: NPO; Complete Time: 22:11 kb Administered Medications: No medications were administered Disposition Summary: 05/14/21 22:21 Discharge Ordered Location: Home pkl Problem: new pkl Symptoms: are unchanged pkl Condition: Stable pkl Diagnosis - Threatened pkl Followup: pkl - With: Private Physician - When: 1 - 2 days - Reason: Re-evaluation by your physician Forms: - Medication Reconciliation Form pkl - Thank You Letter pkl - Antibiotic Education pkl - Prescription Opioid Use pkl Signatures: Dispatcher [employer] Carol Wise, ADRIANO-[place]-Stanley Wilson MD MD pkl Dang Miller, RN RN kg
--- NOTE | 2021-05-14 22:21 | ER ---
Nurse's Notes [facility] Name: Tory Espinoza Age: 21 yrs Sex: Female : 2000 Arrival Date: 05/14/2021 Time: 16:16 Bed 11 Private MD: Diagnosis: Threatened Presentation: 05/14 16:35 Chief complaint: Patient states: Woke this morning with bad cramps and bleeding, Pt kg stated she has used two pads today. Pt stated she's been having spotting and her OB told her that was normal but if it gets worse to come to the ER. Coronavirus screen: Client denies travel out of the [place] in the last 14 days. At this time, unable to obtain information related to travel outside the [place] At this time, the client does not indicate any symptoms associated with coronavirus-19. Ebola Screen: Patient negative for fever greater than or equal to 101.5 degrees Fahrenheit, and additional compatible Ebola Virus Disease symptoms Patient denies exposure to infectious person. Patient denies travel to an Ebola-affected area in the 21 days before illness onset. Initial Sepsis Screen: Does the patient meet any 2 criteria? No. Patient's initial sepsis screen is negative. Does the patient have a suspected source of infection? No. Patient's initial sepsis screen is negative. Risk Assessment: Do you want to hurt yourself or someone else? Patient reports no desire to harm self or others. Onset of symptoms was May 14, 2021 at 11:00. 16:35 Method Of Arrival: Ambulatory kg 16:35 Acuity: DEBBIE 3 kg Triage Assessment: 16:38 General: Appears uncomfortable, Behavior is calm, cooperative, appropriate for age, kg crying. Pain: Complains of pain in suprapubic area Pain currently is 9 out of 10 on a pain scale. at worst was 10 out of 10 on a pain scale. level that patient reports is acceptable is 3 out of 10 on a pain scale. Quality of pain is described as crampy, stabbing, Pain began 4 hours ago. Is continuous. : Reports vaginal bleeding that is bright red, moderate flow. 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 - Social history:: Smoking status: Patient denies any tobacco usage or history of. Screenin:41 Abuse screen: Denies threats or abuse. Denies injuries from another. Nutritional kg screening: No deficits noted. Tuberculosis screening: No symptoms or risk factors identified. Fall Risk None identified. Assessment: 22:11 Reassessment: Patient appears in no apparent distress at this time. No changes from ms4 previously documented assessment. Patient and/or family updated on plan of care and expected duration. Pain level reassessed. General: Appears in no apparent distress. Behavior is calm, cooperative. Pain: Complains of pain in abdomen. Neuro: No deficits noted. Cardiovascular: No deficits noted. Respiratory: No deficits noted. GI: Reports lower abdominal pain. : Reports vaginal bleeding that is with clots. 22:12 : Vaginal discharge is. ms4 Vital Signs: 16:35 BP 116 / 70; Pulse 80; Resp 20; Temp 99.4; Pulse Ox 98% on R/A; Weight 109.32 kg (M); kg Height 5 ft. 5 in. (165.10 cm); Pain 9/10; 22:29 BP 112 / 76; Pulse 80; Resp 18; Temp 98.2; Pulse Ox 98% ; Pain 2/10; ms4 16:35 Body Mass Index 40.10 (109.32 kg, 165.10 cm) kg ED Course: 16:16 Patient arrived in ED. ds1 16:38 Triage completed. kg 16:38 Arm band placed on right wrist. kg 16:41 Patient has correct armband on for positive identification. kg 17:35 US Transvaginal Ob In Process Unspecified. EDMS 21:48 Stanley Sesay MD is Attending Physician. pkl 22:12 Assist provider with pelvic exam: Set up pelvic tray. Performed by Stanley Sesay MD Patient ms4 tolerated well. 22:29 Patient did not have IV access during this emergency room visit. ms4 Administered Medications: No medications were administered Outcome: 22:21 Discharge ordered by . joey 22:29 Discharged to home ambulatory. ms4 22:29 Condition: stable 22:29 Discharge instructions given to patient, Instructed on discharge instructions, follow up and referral plans. Demonstrated understanding of instructions, follow-up care. 22:30 Patient left the ED. ms4 Signatures: Dispatcher [employer] EDMS Stanley Sesay MD MD pkl Sanford, Demi ds1 Dang Miller, RN RN Vivian Rosales RN RN ms4
[2021-05-14 22:39] VITALS: O2SAT 98
[2021-05-14 22:41] VITALS: BP 112/76; TEMP 98.2
== END 2021-05-14 22:30 | disposition home or self-care (01) ==
LOC: ER 16:13
DX: O20.0 Threatened abortion (principal)
CPT/HCPCS: 36415; 76817; 80048; 81003; 84702; 85025; 86900; 86901; 99283